=== PATIENT | male | born 1990 | race Caucasian/White ===

== ENCOUNTER 2022-03-06 12:37 | Outpatient (CLI) | payer BC ==
[2022-03-06] MEDS ORDERED: EPINEPHrine 1 MG/ML AMP ONE (12:57)
[2022-03-06] MEDS ORDERED: Sodium Bicarbonate 2.5 MEQ/5 ML VIAL ONE (12:58)
[2022-03-06] MEDS ORDERED: Lidocaine 1% PF 5 ML VIAL ONE (12:58)
[2022-03-06 15:42] VITALS: BP 128/62; TEMP 98.6
== END 2022-03-06 15:20 | disposition home or self-care (01) ==
LOC: CSHRAD 12:37
PROVIDERS: ATTEND Orthopaedic Surgery
DX: M24.811 Other specific joint derangements of right shoulder, not elsewhere classified (principal)
CPT/HCPCS: 23350; J0171